=== PATIENT | male | born 1960 | race Caucasian/White ===

== ENCOUNTER 2017-08-09 23:41 | Emergency (ER) | payer BC ==
[~2017-08-09] VITALS: Ht 182.9 cm; Wt 120.2 kg
[~2017-08-09 23:41] MED LIST: ACHD5005 PO; CYCL10TA9 PO; NAPR-243 PO
[2017-08-10] MEDS ORDERED: RX-NAPROXEN (NAPROSYN) 250 MG TAB PPK#4 PO ONE (00:03)
[2017-08-10] MEDS ORDERED: RX-CYCLOBENZAPRINE 10 MG (FLEXERIL) TAB PPK#3 PO STA (00:07)
[2017-08-10] MEDS ORDERED: RX-NAPROXEN (NAPROSYN) 250 MG TAB PPK#4 PO STA (00:07)
[2017-08-10] MEDS ORDERED: CYCL10TA9 PO (00:12)
[2017-08-10] MEDS ORDERED: NAPR500T3 PO (00:12)
[2017-08-10] MEDS ORDERED: HYDR-3812 PO (00:12)
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
[2017-08-10 00:15] VITALS: BP 0/0
[2017-08-10] MEDS ORDERED: RX-HYDROCODONE/APAP 5/325 MG #4 TAB PK PO PRN (00:15)
== END 2017-08-10 00:15 | disposition home or self-care (01) ==
LOC: EDUNIT# 23:41 → ER 23:43
DX: Z87.19 Personal history of other diseases of the digestive system; M62.838 Other muscle spasm
CPT/HCPCS: 99283